=== PATIENT | male | born 1985 | race African-American/Black ===

== ENCOUNTER 2022-07-25 12:05 | Emergency (ER) | payer MEDICAID ==
[~2022-07-25] VITALS: Ht 188 cm; Wt 105.0 kg
[2022-07-25 12:19] VITALS: BP 159/98
[2022-07-25] MEDS ORDERED: VISCOUS LIDOCAINE 2% 15 ML UDC PO STA (13:08)
[2022-07-25] MEDS ORDERED: IBUPROFEN 400MG TABLET PO ONE (13:15)
[2022-07-25] MEDS ORDERED: ACET-2708 MT (15:07)
[2022-07-25] MEDS ORDERED: IBUP-2028 MT (15:07)
== END 2022-07-25 15:50 | disposition home or self-care (01) ==
LOC: ER 14:46
DX: R07.0 Pain in throat (principal)
CPT/HCPCS: 87070; 87430; 99283